=== PATIENT | female | born 1970 | race African-American/Black ===

== ENCOUNTER → 2016-09-27 | Outpatient (CLI) | payer OTHER ==
[~2016-09-27] MED LIST: ATIVAN1 MG PO; BENADRYL50 MG PO; CINNAMON500 MG PO; CIPRO500 MG PO; COMPAZINE10 MG PO; DECADRON4 MG PO; DICLOFENAC SODI75 MG PO; ENULOSE10 GM/15 M PO; ERGOCALCIF50000 UNIT PO; FIORICET,ESG1 TABLET PO; FLEXERIL10 MG PO; GABAPENTIN400 MG PO; GLIPIZIDE; GLIPIZIDE5 MG PO; GLUCOPHAGE850 MG PO; GLUCOTROL XL2.5 MG PO; LISINOPRIL2.5 MG PO; LORAZEPAM1 MG PO; METFORMIN HCL1000 M1 PO; MIRALAX255 GM PO; MOBIC7.5 MG PO; NITROFURANTOIN100 MG PO; OMEPRAZOLE20 MG PO; OXYCODONE-APAP1 EACH PO; PEPCID40 MG PO; PERCOCET 5/31 TABLET PO; PRAVACHOL10 MG PO; PRAVASTATIN SOD10 MG PO; RESTORIL30 MG PO; TAMOXIFEN CITRA10 MG PO; TEMAZEPAM30 MG PO; TRAMADOL HCL50 MG PO; ZANTAC150 MG PO; ZESTRIL2.5 MG PO
== END | disposition home or self-care (01) ==
LOC: CDC 09:05
DX: Z01.810 Encounter for preprocedural cardiovascular examination (principal); C50.919 Malignant neoplasm of unspecified site of unspecified female breast
CPT/HCPCS: 93000

== ENCOUNTER → 2016-09-30 | Outpatient (CLI) | payer OTHER | END | disposition home or self-care (01) | LOC: EKG 12:42 | DX: I27.2 Other secondary pulmonary hypertension (principal); C50.919 Malignant neoplasm of unspecified site of unspecified female breast | CPT/HCPCS: 93306 ==

== ENCOUNTER 2016-10-20 18:36 | Emergency (ER) | payer OTHER ==
[~2016-10-20] VITALS: Ht 170.2 cm; Wt 71.1 kg
[2016-10-20] MEDS ORDERED: LISINOPRIL10 MG PO (21:08)
[2016-10-20] MEDS ORDERED: VITAMIN D-32000 UNI2 PO (21:09)
[2016-10-20 22:04] VITALS: BP 126/75
== END 2016-10-20 22:44 | disposition home or self-care (01) ==
LOC: EME 18:36
DX: M77.9 Enthesopathy, unspecified (principal); J02.9 Acute pharyngitis, unspecified; H65.91 Unspecified nonsuppurative otitis media, right ear
CPT/HCPCS: 73140; 87651 90; 99281; 99284

== ENCOUNTER 2017-12-28 05:34 | Inpatient (IN) | payer OTHER ==
[2017-12-28] VITALS (11 sets, daily range): BP systolic 104–126; BP diastolic 73–86
[~2017-12-28] VITALS: Ht 170.2 cm; Wt 71.1 kg
[~2017-12-28 05:34] MED LIST changes: +LISINOPRIL10 MG PO; +VITAMIN D-32000 UNI2 PO
[2017-12-28 06:10] LABS: MCH 24.8 PG (29.0-34.0); MCHC 30.8 G/DL (30.0-36.0); MCV 80.5 FL (83-99); RBC DIS.WIDTH-CV 13.6 % (11.8-14.6); RBC DIS.WIDTH-SD 40.3 % (39-53); RED BLOOD COUNT 3.23 M/uL (3.80-5.20); WHITE BLOOD COUNT 8.5 K/uL (4.1-10.2)
[2017-12-28 06:12] LABS: PLATELET COUNT 233 K/uL (156-360)
[2017-12-28 06:20] LABS: ALBUMIN 3.9 g/dL (3.2-4.8); CHLORIDE 107 mEq/L (99-109); POTASSIUM 4.3 mEq/L (3.7-5.4); SODIUM 142 mEq/L (136-147)
[2017-12-28 06:22] LABS: GLUCOSE 133 mg/dL (70-99)
[2017-12-28 06:23] LABS: TOTAL PROTEIN 6.9 g/dL (6.4-8.3)
[2017-12-28 06:24] LABS: TOTAL BILIRUBIN 0.2 mg/dL (0.0-1.0)
[2017-12-28 06:26] LABS: ALKALINE PHOSPHATASE 74 IU/L (3-129); CREATININE 1.2 mg/dL (0.6-1.3); GFR ESTIMATE (CALCULATED) > 59 mL/min/
[2017-12-28 06:27] LABS: UREA NITROGEN (BUN) 19 mg/dL (9-23)
[2017-12-28 06:28] LABS: AST (GOT) 26 IU/L (2-34)
[2017-12-28 06:29] LABS: ALT (GPT) 12 IU/L (3-49)
[2017-12-28 06:35] LABS: QUANTITATIVE HCG < 4.0 MIU/ML
[2017-12-28 10:13] LABS: APPEARANCE SL.HAZY ((CLEAR)); BILIRUBIN NEGATIVE; BLOOD NEGATIVE; COLOR YELLOW ((YELLOW)); GLUCOSE (STRIP) NEGATIVE; KETONES NEGATIVE; LEUKOCYTES MODERATE; NITRITE POSITIVE; PROTEIN (STRIP) NEGATIVE; SPECIFIC GRAVITY 1.015 (1.000-1.030); UROBILINOGEN 0.2 MG/DL (0.2-1.0)
[2017-12-28 10:44] LABS: BACTERIA 2+ /HPF; EPITHELIAL CELLS RARE /HPF; HYALINE CASTS 0-5 /LPF; MUCUS NONE SEEN /LPF; RED BLOOD CELLS NONE SEEN /HPF (0-5); UCUL ADDED? YES; WHITE BLOOD CELLS 15-20 /HPF (0-5)
[2017-12-28] MEDS ORDERED: PRILOSEC20 MG PO (12:42)
[2017-12-28] MEDS ORDERED: ENDOCET 5-3251 EACH PO (12:43)
[2017-12-28] MEDS ORDERED: MS CONTIN,ORAMO30 MG PO (12:43)
[2017-12-28] MEDS ORDERED: PRAVACHOL20 MG PO (12:43)
[2017-12-28] MEDS ORDERED: ZESTRIL5 MG PO (12:43)
[2017-12-28] MEDS ORDERED: MAGNESIUM400 M1 PO ×2 (12:44→12:45)
[2017-12-28] MEDS ORDERED: MOBIC15 MG PO (12:44)
[2017-12-28] MEDS ORDERED: PROZAC20 MG PO (12:44)
[2017-12-28] MEDS ORDERED: FOLIC ACID1 MG PO (12:44)
[2017-12-28] MEDS ORDERED: EXCEDRIN MIGRA1 EAC3 PO (12:45)
[2017-12-28] MEDS ORDERED: EXCEDRIN EXTRA1 EACH PO (12:45)
[2017-12-28 13:23] LABS: DIRECT BILIRUBIN 0.1 mg/dL (0.0-0.3)
[2017-12-28 14:32] LABS: HEMATOCRIT 21.7 % (36.0-46.0); HEMOGLOBIN 6.7 G/DL (11.9-15.5); MCV 80.4 FL (83-99)
[2017-12-28 17:56] LABS: TROP-I INTERPRETATION NEGATIVE; TROPONIN-I < 0.01 ng/mL (0.0-0.30)
[2017-12-28 18:07] LABS: IMM.RETIC FRACTION 19.3 % (3-19); RETIC HGB EQUIVALENT 25.8 (28-36); RETICULOCYTE COUNT 1.6 % (0.5-1.8)
[2017-12-28 20:58] LABS: STOOL OCCULT BLD 1ST SPECIMEN NEGATIVE
[2017-12-29 00:11] VITALS: BP 121/82
[2017-12-29 01:38] LABS: HEMATOCRIT 27.4 % (36.0-46.0); HEMOGLOBIN 8.8 G/DL (11.9-15.5); MCV 80.6 FL (83-99)
[2017-12-29 03:39] VITALS: BP 147/105
[2017-12-29 05:53] LABS: HEMATOCRIT 28.5 % (36.0-46.0); HEMOGLOBIN 8.8 G/DL (11.9-15.5)
[2017-12-29 05:56] LABS: HEMATOCRIT 28.8 % (36.0-46.0); HEMOGLOBIN 8.8 G/DL (11.9-15.5); MCH 24.7 PG (29.0-34.0); MCHC 30.6 G/DL (30.0-36.0); MCV 80.9 FL (83-99); PLATELET COUNT 207 K/uL (156-360); RBC DIS.WIDTH-CV 14.3 % (11.8-14.6); RBC DIS.WIDTH-SD 42.1 % (39-53); RED BLOOD COUNT 3.56 M/uL (3.80-5.20)
[2017-12-29 06:12] LABS: CHLORIDE 110 MEQ/L (99-109); CREATININE 0.9 MG/DL (0.6-1.3); GFR ESTIMATE (CALCULATED) > 59 mL/min/; GLUCOSE 157 mg/dL (70-99); POTASSIUM 3.9 MEQ/L (3.7-5.4); SODIUM 144 MEQ/L (136-147); UREA NITROGEN (BUN) 11 mg/dL (9-23)
[2017-12-29 08:11] VITALS: BP 120/80
[2017-12-29 08:47] LABS: CREATINE KINASE 1307 IU/L (1-294)
[2017-12-29 15:27] VITALS: BP 144/100
[2017-12-29 20:18] VITALS: BP 133/84
[2017-12-30 00:01] VITALS: BP 136/85
[2017-12-30 04:30] VITALS: BP 111/68
[2017-12-30 07:20] VITALS: BP 133/84
[2017-12-30] MEDS ORDERED: DIFLUCAN200 MG PO (07:45)
[2017-12-30] MEDS ORDERED: AMOX TR-K CLV1 EAC4 PO (07:46)
[2017-12-30] MEDS ORDERED: PROTONIX40 MG PO (07:49)
[2017-12-30 08:34] LABS: HEMATOCRIT 31.1 % (36.0-46.0); HEMOGLOBIN 9.9 G/DL (11.9-15.5); MCH 25.4 PG (29.0-34.0); MCHC 31.8 G/DL (30.0-36.0); MCV 79.9 FL (83-99); PLATELET COUNT 230 K/uL (156-360); RBC DIS.WIDTH-CV 14.1 % (11.8-14.6); RBC DIS.WIDTH-SD 41.1 % (39-53); RED BLOOD COUNT 3.89 M/uL (3.80-5.20); WHITE BLOOD COUNT 5.9 K/uL (4.1-10.2)
[2017-12-30 08:38] LABS: CHLORIDE 107 MEQ/L (99-109); CREATININE 0.9 MG/DL (0.6-1.3); GFR ESTIMATE (CALCULATED) > 59 mL/min/; GLUCOSE 119 mg/dL (70-99); POTASSIUM 3.6 MEQ/L (3.7-5.4); SODIUM 142 MEQ/L (136-147); UREA NITROGEN (BUN) 8 mg/dL (9-23)
== END 2017-12-30 12:38 | disposition home or self-care (01) | DRG 369 ==
LOC: EME 05:34 → 4SOUTH 12:36 → EDOF 12:36 → ENRESERV 12:38 → 4SOUTH 15:55
PROVIDERS: Internal Medicine; Physician Assistant Medical
PROC: 30233N1 Transfusion of Nonautologous Red Blood Cells into Peripheral Vein, Percutaneous Approach (ICD-10-PCS; 2017-12-28)
PROC: 0DB38ZX Excision of Lower Esophagus, Via Natural or Artificial Opening Endoscopic, Diagnostic (ICD-10-PCS; principal; 2017-12-29)
DX: B37.81 Candidal esophagitis (principal); M62.82 Rhabdomyolysis; N30.00 Acute cystitis without hematuria; D57.1 Sickle-cell disease without crisis; C50.919 Malignant neoplasm of unspecified site of unspecified female breast; E11.9 Type 2 diabetes mellitus without complications; J98.11 Atelectasis; G47.00 Insomnia, unspecified; R09.02 Hypoxemia; K21.9 Gastro-esophageal reflux disease without esophagitis; R29.6 Repeated falls; Z92.21 Personal history of antineoplastic chemotherapy; Z90.10 Acquired absence of unspecified breast and nipple; Z90.710 Acquired absence of both cervix and uterus; Z79.891 Long term (current) use of opiate analgesic; I10 Essential (primary) hypertension; R55 Syncope and collapse; E86.0 Dehydration; E78.5 Hyperlipidemia, unspecified; G89.4 Chronic pain syndrome; J32.2 Chronic ethmoidal sinusitis; K59.00 Constipation, unspecified; K44.9 Diaphragmatic hernia without obstruction or gangrene; Z79.84 Long term (current) use of oral hypoglycemic drugs
CPT/HCPCS: 70450; 71046; 71275; 72125; 80048; 80053; 81003; 82248; 82272; 82550; 82550 91; 82948; 83010 90; 83605; 83615; 83880; 84484; 84702; 85014; 85018; 85027; 85046; 86850; 86900; 86901; 86920; 87040; 87077; 87086; 87186; 88305; 88312; 93005; 93306; 99281; 99284; C9113; J0696; J7030; J7040; P9016